=== PATIENT | male | born 1955 | race Caucasian/White ===

== ENCOUNTER → 2020-10-24 | Outpatient (CLI) | payer MEDICARE ==
--- NOTE | 2020-10-24 10:34 | RAD ---
EXAMINATION: CT LEFT HIP WITHOUT IV CONTRAST CLINICAL HISTORY: Heterotopic ossification TECHNIQUE: Noncontrast serial axial images obtained through the left hip and proximal thigh with sagi ttal and coronal reconstructions. CT Dose Reduction Employed: One or more of the following individualized dose reduction techniques wer e utilized for this examination: 1. Automated exposure control 2. Adjustment of the mA and/or kV ac cording to patient size 3. Use of iterative reconstruction technique. COMPARISON: None FINDINGS: Prominent enthesopathy along the inferior pubic ramus with predominantly mature corticated ossificati on measuring up to 6.2 x 2.1 x 4.0 cm (AP x TRV x CC) along the course of the medial proximal adducto r dusty muscle just distal to the inferior pubic ramus, compatible with remote muscular trauma. Ther e is resultant mild mass effect on the residual adductor dusty muscle. The ossification also closely approximates the semimembranosus myotendinous junction into a lesser extent the sciatic nerve withou t definitive evidence of significant mass effect. Small corticated ossicles at the origin of the conjoined tendon, compatible with chronic tendinosis. Left iliopsoas, rectus femoris, and gluteal tendons unremarkable on limited evaluation. Muscles other solis unremarkable on limited evaluation. Left hip joint, SI joint, and pubic symphysis maintained. Partially visualized lumbar degenerative ch anges. No acute fracture. No significant joint effusion. Vascular calcifications. Incidentally noted sigmoid diverticulosis without evidence of diverticulitis and right scrotal calcif ication. IMPRESSION: Heterotopic ossification along the course of the small abductor dusty muscle as described, compatibl e with remote trauma in the appropriate clinical setting. Chronic tendinosis left hamstrings origin. Electronically signed by: Milton Dia DO (10/24/2020 10:32 AM) [id number]
== END ==
LOC: CT 09:25
PROVIDERS: ATTEND Orthopaedic Surgery
DX: M61.552 Other ossification of muscle, left thigh (principal); M76.892 Other specified enthesopathies of left lower limb, excluding foot
CPT/HCPCS: 73700

== ENCOUNTER → 2021-08-02 | Outpatient (CLI) | payer MEDICARE ==
--- NOTE | 2021-08-02 12:51 | RAD ---
EXAM: CT CHEST WITHOUT CONTRAST (LDCT LUNG CANCER SCREENING). HISTORY: Risk factors for pulmonary malignancy 66-year-old male with 20+ pack year history of smoking TECHNIQUE: CT of the chest was performed without intravenous contrast using a low-dose lung screening protocol. Findings analysis is based on ACR Lung-RADS v1.1. *One or more of the following individual ized dose reduction techniques were utilized for this examination: 1. Automated exposure control. 2. Adjustment of the mA and/or kV according to patient size. 3. Use of iterative reconstruction technique. COMPARISON: None. FINDINGS: There is a 2 mm noncalcified nodule apical right upper lobe (axial image 52). Centrilobular emphysema tous changes noted. No other nodules are identified. No focal infiltrate, pneumothorax, or effusion i s seen. Heart size is normal. Coronary calcification noted. Calcified nodes in the mediastinum and le ft hilum suggest prior granulomatous disease. Limited visualization of the upper abdomen demonstrate s no acute abnormality. No acute osseous of normality is seen. IMPRESSION/RECOMMENDATION: 1. 2 mm noncalcified nodule, right upper lobe. ACR Lung-RADS category: 2. Continue annual screening w ith LDCT in 12 months 2. Centrilobular emphysema Electronically signed by: Kenrick Liang MD (08/02/2021 12:48 PM) [id number]
== END ==
LOC: CT 10:28
PROVIDERS: ATTEND Family Medicine
DX: Z12.2 Encounter for screening for malignant neoplasm of respiratory organs (principal); R91.1 Solitary pulmonary nodule; J43.9 Emphysema, unspecified; I25.10 Atherosclerotic heart disease of native coronary artery without angina pectoris; Z87.891 Personal history of nicotine dependence
CPT/HCPCS: 71271